=== PATIENT | female | born 1990 | race Caucasian/White ===

== ENCOUNTER → 2016-09-28 | Outpatient (CLI) | payer OTHER ==
[2016-09-28 11:13] LABS: CH 31.6; HCT 38.5 % (34.0-46.0); HDW 2.48; HGB 12.9 gm/dL (11.4-16.0); MCH 31.3 pg (25.0-35.0); MCHC 33.5 g/dL (31.0-37.0); MCV 93.3 fL (80.0-100.0); Mean Platelet Volume 10.1; RBC 4.13 m/uL (3.80-5.40); RDW 12.8 % (11.5-15.5); WBC 8.2 k/uL (3.8-10.6)
[2016-09-28 12:03] LABS: Glucose 71 mg/dL (74-99); Non-African American GFR(MDRD) >60 (>60 ml/min/1.73 sqM)
[2016-09-28 12:34] LABS: Hepatitis B Surface Ag Index 0.06
[2016-09-30 03:47] LABS: HIV-1/HIV-2 Ab Screen NONREAC (NON REAC)
== END | disposition home or self-care (01) ==
LOC: LABWHC1 10:39
PROVIDERS: ATTEND Obstetrics & Gynecology
DX: O26.811 Pregnancy related exhaustion and fatigue, first trimester (principal); Z3A.00 Weeks of gestation of pregnancy not specified
CPT/HCPCS: 36415; 82565; 82947; 85027; 86762; 86780; 86850; 86900; 86901; 87340; 87389

== ENCOUNTER → 2016-11-04 | Outpatient (CLI) | payer OTHER ==
--- NOTE | 2016-11-04 17:32 | US ---
EXAMINATION TYPE: US OB anatomy transabd DATE OF EXAM: 11/04/2016 4:49 PM COMPARISON: NONE HISTORY: Large for Dates O36.62X0 TECHNIQUE: OBTA EXAM MEASUREMENTS: GESTATIONAL AGE / DATING Physician Established: (17 weeks/2 days) EDC: 04/12/2017 Dates by LMP: unknown Dates by First Scan: LEAK INSPECTOR Dates by Current Scan for: (17 weeks/5 days) EDC: 04/09/2017 SURVEY IUP: Single PLACENTA: Anterior PREVIA: No previa TON: 13.1 cm Normal CERVICAL LENGTH (transabdominal: norm > 3.0cm): 4.1 cm BIOMETRY PRESENTATION: Vertex LIE: Longitudinal BPD: 3.8 cm 17 weeks / 4 days HC: 14.4 cm 17 weeks / 4 days AC: 12.7 cm 18 weeks / 2 days FL: 2.5 cm 17 weeks / 3 days ESTIMATED WEIGHT IN GRAMS: 214 grams ESTIMATED WEIGHT IN LBS/OZS: 0 lbs. 8 oz. WEIGHT PERCENTAGE BASED ON ESTABLISHED DATE: 81 % HC/AC: 1.1 Normal FL/AC: 19.5 Normal HEART RATE: 137 bpm RHYTHM: Normal ANATOMY SEEN (within normal limits): * Lateral Vent (< 1 cm) 0.5 cm * Cisterna Magna (< 1.1 cm) 0.3 cm * Nuchal Fold (< 0.6 cm) 0.4 cm * Cerebellum (varies with age) 1.7 cm Choroid Plexus (bilateral) Midline Falx Cavus Septi Pellucidi Four Chamber Heart Outflow tracts: LVOT/RVOT Stomach Situs Nose / Lips Diaphragm Kidneys (bilateral) Bladder Cord Insert Three Vessel Cord Longitudinal Spine Transverse Spine Arms (bilateral) Legs (bilateral) IMPRESSION: The ultrasound gestational age is 17 weeks 5 days. I see no complicating process.
== END | disposition home or self-care (01) ==
LOC: RADUSWWP 16:07
PROVIDERS: ATTEND Obstetrics & Gynecology
DX: O36.62X0 Maternal care for excessive fetal growth, second trimester, not applicable or unspecified (principal); Z3A.17 17 weeks gestation of pregnancy
CPT/HCPCS: 76811

== ENCOUNTER → 2017-01-04 | Outpatient (CLI) | payer OTHER ==
[2017-01-04 08:54] LABS: CH 31.7; CHCM 33.5; HCT 36.9 % (34.0-46.0); HDW 2.66; HGB 12.5 gm/dL (11.4-16.0); MCH 32.1 pg (25.0-35.0); MCHC 33.8 g/dL (31.0-37.0); MCV 95.2 fL (80.0-100.0); Mean Platelet Volume 9.8; RBC 3.88 m/uL (3.80-5.40); RDW 13.6 % (11.5-15.5); WBC 9.4 k/uL (3.8-10.6)
== END | disposition home or self-care (01) ==
LOC: LABWHC1 07:46
PROVIDERS: ATTEND Obstetrics & Gynecology
DX: Z34.92 Encounter for supervision of normal pregnancy, unspecified, second trimester (principal)
CPT/HCPCS: 36415; 82950; 85027

== ENCOUNTER → 2017-02-05 | Outpatient (CLI) | payer OTHER ==
[2017-02-05 10:58] LABS: CH 31.2; CHCM 34.4; HCT 33.4 % (34.0-46.0); HDW 2.79; MCH 32.9 pg (25.0-35.0); MCV 91.4 fL (80.0-100.0); Mean Platelet Volume 9.3; RBC 3.66 m/uL (3.80-5.40); RDW 13.3 % (11.5-15.5); WBC 10.5 k/uL (3.8-10.6)
== END | disposition home or self-care (01) ==
LOC: LABWHC1 10:15
PROVIDERS: ATTEND Obstetrics & Gynecology
DX: D69.6 Thrombocytopenia, unspecified (principal)
CPT/HCPCS: 36415; 85027

== ENCOUNTER → 2017-02-20 | Outpatient (CLI) | payer OTHER ==
--- NOTE | 2017-02-20 10:37 | US ---
EXAMINATION TYPE: US OB anatomy trans abd DATE OF EXAM: 02/20/2017 COMPARISON: 2017 HISTORY: 036.63X0 Large for dates 3rd trimester TECHNIQUE: Transabdominal (TA) EXAM MEASUREMENTS: GESTATIONAL AGE / DATING Physician Established: (32 weeks/5 days) EDC: 04/12/2017 Dates by LMP: NA Dates by First Scan: (32 weeks/5 days) EDC: 04/12/2017 Dates by Current Scan for: (32 weeks/2 days) EDC: 04/15/2017 SURVEY IUP: Single PLACENTA: Anterior PREVIA: No previa TON: 21 cm Normal CERVICAL LENGTH (transabdominal: norm > 3.0cm): 4.6 cm BIOMETRY PRESENTATION: Vertex LIE: Longitudinal BPD: 8.0 cm 32 weeks / 1 days HC: 29.0 cm 32 weeks / 0 days AC: 28.3 cm 32 weeks / 2 days FL: 6.3 cm 32 weeks / 4 days ESTIMATED WEIGHT IN GRAMS: 1943 grams ESTIMATED WEIGHT IN LBS/OZS: 4 lbs. 5 oz. WEIGHT PERCENTAGE BASED ON ESTABLISHED DATE: 27.6 % HC/AC: 1.0 Normal FL/AC: 22 Normal HEART RATE: 138 bpm RHYTHM: Normal ANATOMY SEEN (within normal limits): * Lateral Vent (< 1 cm) 0.5 cm Midline Falx Cavus Septi Pellucidi Four Chamber Heart Outflow tracts: LVOT/RVOT Stomach Situs Nose / Lips Diaphragm Kidneys (bilateral) Bladder Cord Insert Three Vessel Cord Longitudinal Spine Transverse Spine Arms (bilateral) Legs (bilateral) ANATOMY NOT SEEN: head down unable to evaluate * Cisterna Magna (< 1.1 cm) cm * Nuchal Fold (< 0.6 cm) cm * Cerebellum (varies with age) cm Choroid Plexus (bilateral) IMPRESSION: Single viable intrauterine with the portions of the examination being limited.
== END | disposition home or self-care (01) ==
LOC: RADUSWWP 09:32
PROVIDERS: ATTEND Obstetrics & Gynecology
DX: O36.63X0 Maternal care for excessive fetal growth, third trimester, not applicable or unspecified (principal); Z3A.32 32 weeks gestation of pregnancy
CPT/HCPCS: 76811

== ENCOUNTER → 2017-03-07 | Outpatient (CLI) | payer OTHER ==
--- NOTE | 2017-03-07 15:31 | US ---
EXAMINATION TYPE: US OB >= 14 wk fetus DATE OF EXAM: 03/07/2017 COMPARISON: US CLINICAL HISTORY: O40.9XX0 Polyhydramnios TECHNIQUE: Transabdominal (TA) GESTATIONAL AGE / DATING Physician Established: (34 weeks/6 days) EDC: 04/12/2017 Dates by LMP: unknown Dates by First Scan: (35 weeks/2 days) EDC: 04/09/2017 Dates by Current Scan: (34 weeks/5 days) EDC: 04/13/2017 SURVEY IUP: Single PLACENTA: Anterior PREVIA: No Previa TON: 13.2 cm Normal CERVICAL LENGTH (transabdominal: norm > 3.0cm): 4.9 cm BIOMETRY PRESENTATION: Vertex BPD: 8.6 cm 34 weeks / 5 days HC: 31.7 cm 35 weeks / 5 days AC: 30.0 cm 34 weeks / 0 days FL: 6.6 cm 34 weeks / 0 days ESTIMATED WEIGHT IN GRAMS: 2377 grams ESTIMATED WEIGHT IN LBS/OZS: 5 lbs. 4 oz. WEIGHT PERCENTAGE BASED ON ESTABLISHED DATES: 29% HC/AC: 1.1 Normal FL/AC: 22 Normal HEART RATE: 130 bpm RHYTHM: Normal growth according to dates, normal TON levels noted. IMPRESSION: 1. Single intrauterine gestation estimated at 34 weeks 5 days gestation. This would have a calculated EDC of 04/13/2017. 2. Cardiac activity measures 30 bpm.
== END ==
LOC: RADUSWWP 13:37
PROVIDERS: ATTEND Obstetrics & Gynecology
DX: O40.9XX0 Polyhydramnios, unspecified trimester, not applicable or unspecified (principal); Z3A.34 34 weeks gestation of pregnancy
CPT/HCPCS: 76805

== ENCOUNTER 2017-04-10 06:15 | Inpatient (IN) | payer OTHER ==
[2017-04-10] MEDS ORDERED: OXYTOCIN 10 UNIT/ML 1 ML VIAL IM PRN (06:36)
[2017-04-10] MEDS ORDERED: LIDOCAINE 1% (PF) 10 MG/ML (30 ML SDV) SQ PRN (06:36)
[2017-04-10] MEDS ORDERED: CARBOPROST TROMETHAMINE 250 MCG/ML 1 ML AMP IM PRN (06:36)
[2017-04-10] MEDS ORDERED: METHYLERGONOVINE 0.2 MG/ML 1 ML AMP IM PRN (06:36)
[2017-04-10] MEDS ORDERED: TERBUTALINE 1 MG/ML VIAL SQ PRN (06:36)
[2017-04-10] MEDS: OXYTOCIN 20 UNITS/1000 ML NS 1,000 ML IV SCH ×2 (06:46→07:16)
[2017-04-10] MEDS: LACTATED RINGERS 1,000 ML IV SCH ×2 (06:46→12:31)
[2017-04-10 07:01] LABS: Basophils % (A) 0 %; CH 30.6; CHCM 34.1; Eosinophils # (A) 0.1 k/uL (0-0.7); Eosinophils % (A) 1 %; HCT 36.7 % (34.0-46.0); HDW 3.11; HGB 12.6 gm/dL (11.4-16.0); Luc # (Auto) 0.33; Luc % (Auto) 3; Lymphocytes # (A) 1.7 k/uL (1.0-4.8); Lymphocytes % (A) 16 %; MCH 31.1 pg (25.0-35.0); MCHC 34.4 g/dL (31.0-37.0); MCV 90.4 fL (80.0-100.0); Mean Platelet Volume 9.6; Monocytes # (A) 0.8 k/uL (0-1.0); Monocytes % (A) 7 %; Neutrophils # (A) 7.8 k/uL (1.3-7.7); Neutrophils % (A) 73 %; RBC 4.06 m/uL (3.80-5.40); RDW 13.7 % (11.5-15.5); WBC 10.8 k/uL (3.8-10.6); WBC (Perox) 10.89
[2017-04-10] MEDS ORDERED: SODIUM CHLORIDE 0.9% 100 ML BAG ONE (12:11)
[2017-04-10] MEDS ORDERED: BUPIVACAINE (PF) 0.25% 30 ML VIAL ONE (12:11)
[2017-04-10] MEDS ORDERED: fentaNYL (PF) 50 MCG/ML 5 ML AMP ONE (12:11)
[2017-04-10] MEDS ORDERED: ACETAMINOPHEN TAB 325 MG TAB PO PRN (16:58)
[2017-04-10] MEDS ORDERED: HYDROCORTISONE 2.5% RECTAL CREAM 30 GM TUBE RECTAL PRN (16:58)
[2017-04-10] MEDS ORDERED: IBUPROFEN 600 MG TAB PO PRN (16:58)
[2017-04-10] MEDS ORDERED: BENZOCAINE/MENTHOL SPRAY 1 GM/SPRAY AEROSOL TOPICAL PRN (16:58)
[2017-04-10] MEDS ORDERED: ZOLPIDEM 5 MG TAB PO PRN (16:58)
[2017-04-10] MEDS ORDERED: WITCH HAZEL 1 EACH MED..PAD TOPICAL PRN (16:58)
[2017-04-10] MEDS ORDERED: diphenhydrAMINE 50 MG CAP PO PRN (16:58)
[2017-04-10] MEDS ORDERED: diphenhydrAMINE 25 MG CAP PO PRN (16:58)
[2017-04-10] MEDS ORDERED: diphenhydrAMINE 50 MG/ML 1 ML VIAL IVP PRN ×2 (16:58)
[2017-04-10] MEDS ORDERED: LANOLIN CREAM 5 GM TUBE TOPICAL PRN (16:58)
[2017-04-10] MEDS ORDERED: SIMETHICONE 80 MG CHEWABLE PO PRN (16:58)
--- NOTE | 2017-04-10 17:36 | P.HPOB ---
History of Present Illness H&P Date: 04/10/17 Chief Complaint: Uterine at term: Induction of labor Patient is a 26-year-old at 39 weeks gestation arise for induction of labor. Her course was overall uncomplicated other than thrombocytopenia which has remained stable. She did see hematology for this but no specific specific therapies have been used. Pertinent labs include O+ blood type, rubella immune, hepatitis B surface antigen and RPR were both negative. Group B strep was also negative. On physical exam vital signs are stable and afebrile. Heart regular, lungs clear, extremities without pain. Osteopathic exams unremarkable. She was dilated to centimeters 80% effaced -2 station. Artificial rupture membranes was performed and clear fluid is noted. Assessment intrauterine at term. Plan expect spontaneous vaginal delivery. She plans to use epidural for analgesia. Past Medical History Past Medical History: No Reported History History of Any Multi-Drug Resistant Organisms: None Reported Additional Past Surgical History / Comment(s): tubes in ears in 5th grade Past Anesthesia/Blood Transfusion Reactions: No Reported Reaction Past Psychological History: No Psychological Hx Reported Smoking Status: Never smoker Past Alcohol Use History: None Reported Past Drug Use History: None Reported - Past Family History Mother Additional Family Medical History / Comment(s): hashimotos disease Sister(s) Additional Family Medical History / Comment(s): hashimotos disease Medications and Allergies Home Medications Medication Instructions Recorded Confirmed Type No Known Home Medications [No 04/10/17 04/10/17 History Known Home Medications] Allergies Allergy/AdvReac Type Severity Reaction Status Date / Time No Known Allergies Allergy Verified 04/10/17 06:36 Exam Osteopathic Statement: *. No significant issues noted on an osteopathic structural exam other than those noted in the History and Physical/Consult. - Vital Signs Vital signs: Vital Signs Temp Pulse Resp BP 04/10/17 17:15 88 18 110/56 04/10/17 17:00 104 H 14 106/55 04/10/17 16:45 99.9 F H 94 16 108/55 04/10/17 06:35 97.0 F L 92 16 121/76 Intake and Output 04/10/17 04/10/17 04/10/17 06:59 14:59 22:59 Intake Total 9.65 Output Total 800 Balance 9.65 -800 Intake: Intake, IV Titration 9.65 Amount Oxytocin 20 Units/1000 ml 9.65 Ns 1,000 ml @ 1 MILLIUNIT/MIN 3 mls/hr IV .Q24H [facility] Rx#:[id number] Output: Urine 800 Other: Weight 78.471 kg Results Result Diagrams: 04/10/17 06:30 Abnormal Lab Results - Last 24 Hours (Table) 04/10/17 Range/Units 06:30 WBC 10.8 H (3.8-10.6) k/uL Neutrophils # 7.8 H (1.3-7.7) k/uL
--- NOTE | 2017-04-10 17:37 | P.PROBDLV ---
Vaginal Delivery Note - . Vaginal Delivery Note: Patient progressed complete and pushing with spontaneous vaginal delivery of a viable female over an intact perineum. Falling deliver the head anterior posterior shoulders were delivered with gentle downward and upward traction followed by the remainder the baby. Mouth nares were then bulb suctioned and baby was placed on mother's abdomen where the umbilical cord was allowed to pulsate for 25 seconds prior to clamping and cutting. Once this was accomplished nursery personnel was present to assume care. Placenta was then delivered intact and Pitocin was added to the IV. scores and weight are pending but both mother and baby currently appear stable.
[2017-04-10] MEDS: SENNOSIDES-DOCUSATE SODIUM 1 EACH TAB PO SCH (19:51)
[2017-04-11 06:38] LABS: Basophils % (A) 0 %; CH 31.8; CHCM 34.3; Eosinophils # (A) 0.1 k/uL (0-0.7); Eosinophils % (A) 1 %; HCT 37.4 % (34.0-46.0); HDW 3.03; HGB 12.6 gm/dL (11.4-16.0); Luc # (Auto) 0.22; Luc % (Auto) 2; Lymphocytes # (A) 1.5 k/uL (1.0-4.8); Lymphocytes % (A) 10 %; MCH 31.4 pg (25.0-35.0); MCHC 33.7 g/dL (31.0-37.0); MCV 93.3 fL (80.0-100.0); Mean Platelet Volume 10.2; Monocytes # (A) 0.8 k/uL (0-1.0); Monocytes % (A) 5 %; Neutrophils # (A) 12.3 k/uL (1.3-7.7); Neutrophils % (A) 82 %; RDW 14.2 % (11.5-15.5); WBC (Perox) 15.97
[2017-04-11] MEDS: SENNOSIDES-DOCUSATE SODIUM 1 EACH TAB PO SCH (08:18)
[2017-04-11 08:29] VITALS: RESP 16; TEMP 98.5
--- NOTE | 2017-04-11 11:20 | P.DS ---
Providers Date of admission: 04/10/17 06:27 Expected date of discharge: 04/11/17 Attending physician: Víctor Dahl Primary care physician: Stated None Hospital Course: Overall patient doing very well. She is involuting, voiding, and she is tolerating her diet. She voices no complaints. Heart is regular, lungs are clear her abdomen is soft uterus is firm lochia is reported be light. Vital signs are otherwise stable and afebrile. Extremities are without pain. Assessment day 1. Plan discharged home. Prescription for Motrin has been forwarded to her pharmacy and discharge instructions were thoroughly reviewed. All the questions are answered for her and she will follow up with me in 6 weeks. Patient Condition at Discharge: Good Plan - Discharge Summary New Discharge Prescriptions: New Ibuprofen [Motrin] 600 mg PO Q6HR PRN #30 tab PRN Reason: Pain Discharge Medication List Ibuprofen [Motrin] 600 mg PO Q6HR PRN #30 tab 04/11/17 [Rx] Follow up Appointment(s)/Referral(s): Víctor Dahl DO [Doctor of Osteopathic Medicine] - 6 Weeks Activity/Diet/Wound Care/Special Instructions: No heavy lifting, limit stairs and driving, and pelvic rest. If any high temperatures, heavy bleeding, or severe pain call my office Discharge Disposition: HOME SELF-CARE
[2017-04-11 16:47] VITALS: BP 130/68; PULSE 80
== END 2017-04-11 17:32 | disposition home or self-care (01) | DRG 775 ==
LOC: 4FBP 06:27
PROVIDERS: ADMIT Obstetrics & Gynecology; ATTEND Obstetrics & Gynecology
PROC: 10E0XZZ Delivery of Products of Conception, External Approach (ICD-10-PCS; principal; 2017-04-10)
PROC: 10907ZC Drainage of Amniotic Fluid, Therapeutic from Products of Conception, Via Natural or Artificial Opening (ICD-10-PCS; 2017-04-10)
DX: O99.12 Other diseases of the blood and blood-forming organs and certain disorders involving the immune mechanism complicating childbirth (principal); D69.6 Thrombocytopenia, unspecified; Z37.0 Single live birth; Z3A.39 39 weeks gestation of pregnancy; Z84.89 Family history of other specified conditions
CPT/HCPCS: 85025; 88307